=== PATIENT | female | born 1990 ===

== ENCOUNTER 2019-06-24 17:23 | Day surgery (SDC) | payer OTHER ==
[2019-06-24 17:57] VITALS: BP 126/78; TEMP 97.2; BMI 27.6
[2019-06-24] MEDS ORDERED: hydrALAZINE 20 MG/ML VIAL SLOW IVP PRN (18:12)
--- NOTE | 2019-06-24 18:16 | PDOC.LDHP ---
Labor and Delivery H&P HPI: 29 yo HF at 37 weeks 2 days, EDC of 07/13/19, seen this am by [facility] and stripped membranes in office. here for CC: possible CTX. Good FM, no VB, no LOF. No fevers. Review of Systems: complete review performed and as per HPi Due date: 07/13/19 Dating criteria: last menstrual period Grav: 3 Para: 2 OB History Details: GBS is negative this . x 2 Current complications: none Abnormal US findings: No Current medications: pre- vitamins Previous surgical history: appendectomy (at age 6) Allergies/Adverse Reactions: Allergies Allergy/AdvReac Type Severity Reaction Status Date / Time nickel Allergy Rash Verified 06/24/19 17:49 Sulfa (Sulfonamide Allergy Rash Verified 06/24/19 17:49 Antibiotics) Social history: none - Physical Exam Vital signs reviewed and normal: yes (126/78 93 18) General: NAD Heart: RRR Lungs: CTAB Abdomen: gravid Extremeties: no edema FHT: category 1 [place] contractions every: irregular ctx but on pattern seen - Vaginal Exam cm dilated: 3 (same as in office today) Effacement: 50% Station: -2 - Assessment Latent threatened labor early term, GBS neg. NST reactive - Plan Plan: observation in L&D (At bedside, as not in active labor clinically, ok for outpatient care. L&D instructions reviewed.)
== END 2019-06-24 18:30 | disposition home health service (06) ==
LOC: L&D/OP 17:23
PROVIDERS: ATTEND Obstetrics & Gynecology
DX: O47.1 False labor at or after 37 completed weeks of gestation (principal); Z3A.37 37 weeks gestation of pregnancy; Z88.2 Allergy status to sulfonamides; Z88.8 Allergy status to other drugs, medicaments and biological substances
CPT/HCPCS: 99282

== ENCOUNTER 2019-07-05 20:00 | Inpatient (IN) | payer OTHER ==
[~2019-07-05 20:00] MED LIST: Bupivacaine 0.25% HCL 30 ML VIAL ONE
[2019-07-05 20:39] VITALS: BMI 27.6
[2019-07-05] MEDS ORDERED: hydrALAZINE 20 MG/ML VIAL SLOW IVP PRN (20:48)
[2019-07-05] MEDS ORDERED: FLU VACC QS2019-20(6MOS UP)/PF 60 MCG/0.5 ML SYRINGE IM ONE (21:00)
[2019-07-05 21:02] LABS: Amnisure Test No Membranes Rupture (No Rupture)
--- NOTE | 2019-07-05 21:02 | PDOC.FPROB ---
FMR OB H&P: HPI - History of Present Illness Chief Complaint: LOF Indentification: 29 yo @ 38.6 wks History of Present Illness: Pt comes in reporting LOF. States a few days ago had episode that soaked her underwear. States been having some leaking since. Reports occasional ctx but nothing consistent. Reports FM Denies any vaginal bleeding, discharge. Denies any urinary sx's. denies any fever or chills. Denies any swelling. Primary Care Physician: Rosendo FMR OB H&P: Current - Care : 3 Para: 2001 Gestational age: 38.6 Due date: 07/12 - OB Labs Blood type: O RH: positive Antibody Screen: negative HIV: negative RPR: negative HepBsAg: negative Rubella: immune Gonorrhea: negative Chlamydia: negative Pap Smear: Normal 1 hour gtt: 95 GBS: negative H&H: 11.8 Platelets: 195 FMR OB H&P: History - Past Medical History PMH: None - OB History OB History: 2 prior - [employer] ADVIS[employer] History [employer] History: No reported hx of STD or abnormal pap smear - Surgical History Sx History: Appendectomy - Social History Social History: Denies any smoking, drinking, or illicit drug use - Family History Family History: Noncontributory FMR OB H&P: Medications - Current Home Medications: Medication Instructions Recorded Confirmed Type No Known 06/24/19 06/24/19 History Allergies/Adverse Reactions: Allergies Allergy/AdvReac Type Severity Reaction Status Date / Time nickel Allergy Rash Verified 07/05/19 20:35 Sulfa (Sulfonamide Allergy Rash Verified 07/05/19 20:35 Antibiotics) FMR OB H&P: ROS - Review of Systems General: denies: fever/chills, weight/appetite/sleep changes, night sweats Eyes: denies: eye pain, vision changes ENT: denies: nasal congestion, rhinorrhea Cardiovascular: denies: chest pain Respiratory: denies: cough, congestion, shortness of breath Gastrointestinal: denies: abdominal pain, cramping, nausea, vomiting, diarrhea, constipation Genitourinary (Female): reports: contractions (occasional). denies: incontinence, dysuria, hematuria, polyuria, hesitancy, vaginal discharge, vaginal pain, vaginal bleeding, vaginal pressure Neurologic: denies: numbness, weakness Integumentary: denies: itching, rash Psychological: denies: depression, anxiety FMR OB H&P: Vital Signs - Heart Tones Baseline: 145 Variability: moderate Acceleration: present Deceleration: absent Category: category 1 [place] contractions every: 10 mintues FMR OB H&P: Physical Exam - Physical Exam General: NAD, awake, alert and oriented HEENT: normocephalic and atraumatic, grossly normal vision, grossly normal hearing Neck: supple, FROM, trachea midline Heart: RRR, normal S1/S2, no murmurs/rubs/gallops General: CTAB, no respiratory distress, good air movement, no rales/rhonchi, no wheezing, no retractions Abdomen: soft, gravid, non-tender, bowel sound present, no masses Musculoskeletal: normal gait and station, FROM in all four extremities Neurological: sensation to pain,touch and proprioception grossly normal Skin: no rash, good tugor, capillary refill <2 seconds Lymphatic: no unusual bruising or bleeding Psychiatric: intact recent and remote memory, normal mood and affect - Pelvic Exam SVE: 4.5/75/-3 Membranes: Appeared to be intact FMR OB H&P: A/P - Problem List (1) Current Visit: Yes Status: Acute Disposition: -Amnisure negative. will wait til next recheck and perform speculum exam to check for pooling -SVE 4.5/75/-3. Cat 1 strip -Will observe for a few hours and recheck for progression of labor. Discussion: Date/Time: 07/05/19 2100 This H&P was discussed with [] and [] who agree with the above documentation and plan. Addendum - Attending - Attending Attestation Date/Time: 07/06/19 0686 I personally evaluated the patient and discussed the management with Dr. Puente. I agree with the History, Examination, Assessment and Plan documented above.
[2019-07-05 21:03] LABS: Amnisure Internal Control QC ACCEPTABLE (ACCEPTABLE)
[2019-07-05] MEDS ORDERED: Acetaminophen 500 MG TAB PO PRN (22:17)
[2019-07-05] MEDS ORDERED: Promethazine HCl 25 MG/ML VIAL IM PRN (22:17)
[2019-07-05] MEDS ORDERED: Butorphanol Tartrate 1 MG/ML VIAL SLOW IVP PRN (22:17)
[2019-07-05] MEDS ORDERED: Ondansetron PF 4 MG/2 ML Vial IVP PRN (22:17)
[2019-07-05] MEDS ORDERED: Methylergonovine 0.2 MG/ML VIAL IM PRN (22:19)
[2019-07-05] MEDS ORDERED: Ibuprofen 800 MG TAB PO PRN (22:19)
[2019-07-05] MEDS ORDERED: Lidocaine 1% (PF) 30 ML VIAL SC PRN (22:19)
[2019-07-05] MEDS ORDERED: Misoprostol 200 MCG TAB PR PRN (22:19)
[2019-07-05] MEDS ORDERED: Carboprost 250 MCG/ML AMP IM PRN (22:19)
[2019-07-05] MEDS ORDERED: NS / Oxytocin 40 units/1000ml 1,000 ML IV PRN (22:19)
[2019-07-05] MEDS: Lactated Ringer's 1,000 ML IV SCH (22:20)
--- NOTE | 2019-07-05 22:21 | PDOC.EVN ---
Event Note - Event Note Event Note: Pt made cervical change on SVE recheck to 5-6/90/-3. At this time will admit pt for labor. Will continue to monitor. Cat 1 strip. Pt does want epidural. Anesthesia consulted Addendum - Attending - Attending Attestation Date/Time: 07/06/19 8979 I personally evaluated the patient and discussed the management with Dr. Puente. Dr. Joseph notified of admit. I agree with the History, Examination, Assessment and Plan documented above.
[2019-07-05 22:33] LABS: Mean Corpuscular HGB CONC 35.5 g/dL (32.0-36.0); Mean Corpuscular Hemoglobin 33.3 pg (27.0-31.0); Mean Corpuscular Volume 93.7 fL (78.0-98.0); Platelet Count 199 thou/uL (130-400); RBC Distribution Width 11.9 % (11.5-14.5); Red Blood Cell (RBC) Count 3.62 mill/uL (4.20-5.40); White Blood Cell (WBC) Count 9.8 thou/uL (4.8-10.8)
[2019-07-05] MEDS ORDERED: Fentanyl 4 mcg/Bup 0.1% Cadd 100 ML ONE (22:49)
[2019-07-05 23:18] LABS: HBSAg Index 0.17 S/CO (0-0.99); Hep B Surf Ag Non-Reactive S/CO (NonReactive); Syphilis Antibody Nonreactive (Nonreactive); Syphilis Antibody Index 0.03 S/CO (<1.00 Non-Reactive)
[2019-07-06] MEDS: Lactated Ringer's 1,000 ML IV SCH (03:05)
[2019-07-06] MEDS ORDERED: Lactated Ringer's 500 ML IV PRN (03:07)
[2019-07-06] MEDS ORDERED: EPHEDRINE 25 MG/5 ML SYRINGE SLOW IVP PRN (03:07)
[2019-07-06] MEDS ORDERED: Ondansetron PF 4 MG/2 ML Vial IVP PRN ×2 (03:07→10:58)
[2019-07-06] MEDS ORDERED: Acetaminophen 325 MG TAB PO PRN (03:07)
[2019-07-06] MEDS ORDERED: Naloxone HCl 0.4 mg/ml Vial IVP PRN ×2 (03:07)
[2019-07-06] MEDS ORDERED: Promethazine HCl 25 MG/ML VIAL IM PRN (03:07)
[2019-07-06] MEDS ORDERED: diphenhydrAMINE 50 MG/ML VIAL IVP PRN (03:07)
[2019-07-06] MEDS ORDERED: Communication Order-Pharmacy FS SCH (03:15)
[2019-07-06] MEDS ORDERED: Fentanyl 4 mcg/Bupivacaine 0.1% Cassette 100 ML EPIDURAL SCH (03:15)
[2019-07-06] MEDS ORDERED: NS w/ Oxytocin 10 units 500 ML IVPB SCH (04:15)
[2019-07-06] MEDS ORDERED: Fentanyl 4 mcg/Bup 0.1% Cadd 100 ML ONE (09:29)
[2019-07-06] MEDS ORDERED: Adacel (T-DAP) 0.5 ML SYRINGE IM ONE (10:58)
[2019-07-06] MEDS ORDERED: Preparation H Ointment 28 GM TUBE PR PRN (10:58)
[2019-07-06] MEDS ORDERED: Bisacodyl 10 MG SUPP PR PRN (10:58)
[2019-07-06] MEDS ORDERED: diphenhydrAMINE 25 MG CAP PO PRN (10:58)
[2019-07-06] MEDS ORDERED: hydrALAZINE 20 MG/ML VIAL SLOW IVP PRN (10:58)
[2019-07-06] MEDS ORDERED: Misoprostol 200 MCG TAB VAG PRN (10:58)
[2019-07-06] MEDS ORDERED: Zolpidem Tartrate 5 MG TAB PO PRN (10:58)
[2019-07-06] MEDS ORDERED: Milk Of Magnesia 30 ML UDCUP PO PRN (10:58)
[2019-07-06] MEDS ORDERED: Benzocaine-Menthol 82.5 ML CAN TOP PRN (10:58)
[2019-07-06] MEDS ORDERED: Acetaminophen/Codeine 30-300mg Tablet PO PRN ×2 (10:58)
[2019-07-06] MEDS ORDERED: Lanolin Ointment 7 GM TUBE TOP PRN (10:58)
[2019-07-06] MEDS ORDERED: NS / Oxytocin 40 units/1000ml 1,000 ML IV SCH (11:00)
[2019-07-06] MEDS: Ibuprofen 800 MG TAB PO SCH ×2 (13:29→21:14)
[2019-07-06] MEDS: Ferrous Sulfate 325 MG TAB PO SCH (13:45)
[2019-07-06] MEDS ORDERED: FLU VACC QS2019-20(6MOS UP)/PF 60 MCG/0.5 ML SYRINGE IM ONE (14:00)
[2019-07-06] MEDS: Docusate Calcium (SURFAK) 240 MG CAP PO SCH (21:13)
[2019-07-06] MEDS ORDERED: Witch Hazel-Glycerin 1 EACH JAR TOP PRN (21:30)
[2019-07-07] MEDS: Ibuprofen 800 MG TAB PO SCH ×2 (06:07→14:04)
[2019-07-07 06:37] LABS: Hemoglobin 11.7 g/dL (12.0-16.0); Mean Corpuscular Hemoglobin 33.1 pg (27.0-31.0); Mean Corpuscular Volume 94.6 fL (78.0-98.0); Platelet Count 174 thou/uL (130-400); Red Blood Cell (RBC) Count 3.55 mill/uL (4.20-5.40); White Blood Cell (WBC) Count 11.2 thou/uL (4.8-10.8)
[2019-07-07] MEDS: Ferrous Sulfate 325 MG TAB PO SCH (08:06)
[2019-07-07] MEDS: Docusate Calcium (SURFAK) 240 MG CAP PO SCH (08:58)
[2019-07-07] MEDS ORDERED: Prenatal Vitamin 1 TAB PO SCH (09:00)
[2019-07-07 10:29] VITALS: BP 117/58; TEMP 98.7
== END 2019-07-07 14:53 | disposition home or self-care (01) | DRG 833 ==
LOC: L&D/OP 20:00 → L&D 22:17 → 3SW 07-06 13:27
PROVIDERS: ADMIT Obstetrics & Gynecology; ATTEND Obstetrics & Gynecology
DX: O42.92 Full-term premature rupture of membranes, unspecified as to length of time between rupture and onset of labor (principal); Z3A.38 38 weeks gestation of pregnancy
CPT/HCPCS: 36415; 84112; 85027; 86780; 86850; 86900; 86901; 87340; 90471; 90686; G0008; J2590; S0020